=== PATIENT | male | born 1975 | race Caucasian/White ===

== ENCOUNTER 2020-06-22 11:28 | Day surgery (SDC) | payer BC ==
[~2020-06-22 11:28] MED LIST: Lidocaine 1% MPF 2 ML VIAL ONE
[2020-06-22] MEDS ORDERED: PROPOFOL 40 ML ONE (12:08)
[2020-06-22] MEDS ORDERED: Ketamine 50 MG/ML (10ML VIAL) ONE (12:08)
== END 2020-06-22 14:10 | disposition home or self-care (01) ==
LOC: CSHSDC 11:28
PROVIDERS: ATTEND Surgery
DX: K21.9 Gastro-esophageal reflux disease without esophagitis (principal); K31.9 Disease of stomach and duodenum, unspecified; K44.9 Diaphragmatic hernia without obstruction or gangrene; K29.70 Gastritis, unspecified, without bleeding; E66.9 Obesity, unspecified
CPT/HCPCS: 88305; J2704

== ENCOUNTER 2023-03-10 06:04 | Day surgery (SDC) | payer BC ==
[2023-03-08 12:08] VITALS: BMI 29.8
[2023-03-10] MEDS ORDERED: Lidocaine 1% PF 5 ML VIAL ONE (07:12)
[2023-03-10] MEDS ORDERED: PROPOFOL 40 ML ONE (07:12)
[2023-03-10] MEDS ORDERED: PROPOFOL 20 ML ONE (07:31)
== END 2023-03-10 08:45 | disposition home or self-care (01) ==
LOC: CSHSDC 06:04
PROVIDERS: ATTEND Surgery
PROC: 0DBN8ZZ Excision of Sigmoid Colon, Via Natural or Artificial Opening Endoscopic (ICD-10-PCS; principal; 2023-03-10)
DX: Z12.11 Encounter for screening for malignant neoplasm of colon (principal); D12.5 Benign neoplasm of sigmoid colon; I10 Essential (primary) hypertension; E78.00 Pure hypercholesterolemia, unspecified; G47.33 Obstructive sleep apnea (adult) (pediatric); Z98.84 Bariatric surgery status
CPT/HCPCS: 88305; J2704

== ENCOUNTER 2023-03-13 07:41 | Outpatient (CLI) | payer BC ==
[2023-03-13] MEDS ORDERED: Iopamidol 300 61% 100 ML VIAL FS ONE (10:20)
== END 2023-03-13 07:42 | disposition home or self-care (01) ==
LOC: CSHCT 07:41
PROVIDERS: ATTEND Internal Medicine
DX: R31.0 Gross hematuria (principal); N20.2 Calculus of kidney with calculus of ureter
CPT/HCPCS: 74178